=== PATIENT | male | born 1960 | race Native Hawaiian/Other Pacific Islander ===

== ENCOUNTER 2016-12-31 08:59 | Outpatient (CLI) | payer OTHER ==
[~2016-12-31 08:59] MED LIST: ALEVE220 MG PO; B12 INJ; BYSTOLIC10 MG PO; BYSTOLIC5 MG PO; CIALIS20 MG PO; CITA20TA2 PO; CLARITIN10 M1 PO; HYDR-2748 PO; KLOR-CON M2020 MEQ PO; LISI20TA11 PO; LISI20TA24 PO; PRILOSEC OTC20 MG PO
== END 2016-12-31 09:59 | disposition home or self-care (01) ==
LOC: US 08:59
DX: M25.841 Other specified joint disorders, right hand (principal)

== ENCOUNTER 2017-06-23 13:29 | Outpatient (CLI) | payer OTHER ==
[2017-06-23 13:50] LABS: PLATELET COUNT 142 K/uL (142-355)
[2017-06-23 14:32] LABS: POTASSIUM 3.5 mmol/L (3.6-5.2); SODIUM 142 mmol/L (136-145)
== END 2017-06-23 14:30 | disposition home or self-care (01) ==
LOC: LAB 13:29
PROVIDERS: Family Medicine
DX: I10 Essential (primary) hypertension (principal); E78.4 Other hyperlipidemia; D64.89 Other specified anemias; E53.8 Deficiency of other specified B group vitamins; N40.0 Benign prostatic hyperplasia without lower urinary tract symptoms; M10.9 Gout, unspecified; F41.8 Other specified anxiety disorders
CPT/HCPCS: 80053; 80061; 81000; 82043; 82570; 82607; 82746; 83735; 84153; 84439; 84443; 84550; 85027

== ENCOUNTER 2018-05-01 09:27 | Outpatient (CLI) | payer OTHER | END 2018-05-01 23:02 | disposition home or self-care (01) | LOC: RAD 09:27 | DX: M54.5 Low back pain (principal) ==

== ENCOUNTER 2018-10-19 12:22 | Emergency (ER) | payer OTHER ==
[~2018-10-19] VITALS: Ht 182.9 cm; Wt 97.5 kg
[2018-10-19 12:31] VITALS: TEMP 98.5
[2018-10-19 14:01] LABS: PLATELET COUNT 154 K/uL (142-355)
[2018-10-19 14:26] VITALS: BP 137/75
== END 2018-10-19 14:39 | disposition home or self-care (01) ==
LOC: ED 12:22
DX: S40.011A Contusion of right shoulder, initial encounter (principal); M47.892 Other spondylosis, cervical region; W18.39XA Other fall on same level, initial encounter; Y92.098 Other place in other non-institutional residence as the place of occurrence of the external cause
CPT/HCPCS: 36415; 80053; 85027; 96372; 99283

== ENCOUNTER 2018-12-01 09:55 | Outpatient (CLI) | payer OTHER ==
[2018-12-01 11:14] LABS: PLATELET COUNT 212 K/uL (142-355)
== END 2018-12-01 19:39 | disposition home or self-care (01) ==
LOC: LABW 09:55
PROVIDERS: Family Medicine
DX: R55 Syncope and collapse (principal); D64.9 Anemia, unspecified; R53.83 Other fatigue; E83.42 Hypomagnesemia; E55.9 Vitamin D deficiency, unspecified; I10 Essential (primary) hypertension
CPT/HCPCS: 36415; 81000; 82306; 82728; 83540; 83550; 83735; 84439; 84443; 85027; 93005

== ENCOUNTER 2018-12-06 14:22 | Outpatient (CLI) | payer OTHER | END 2018-12-06 20:11 | disposition home or self-care (01) | LOC: LAB 14:22 | PROVIDERS: Family Medicine | DX: I10 Essential (primary) hypertension (principal); Z13.6 Encounter for screening for cardiovascular disorders; R55 Syncope and collapse | CPT/HCPCS: 80061 ==

== ENCOUNTER 2018-12-15 09:40 | Outpatient (CLI) | payer OTHER ==
[2018-12-15 10:22] LABS: POTASSIUM 3.6 mmol/L (3.6-5.2)
== END 2018-12-15 22:22 | disposition home or self-care (01) ==
LOC: LABW 09:40
PROVIDERS: Family Medicine
DX: D53.1 Other megaloblastic anemias, not elsewhere classified (principal); R74.8 Abnormal levels of other serum enzymes
CPT/HCPCS: 36415; 80053; 80074; 82607; 82746

== ENCOUNTER 2019-06-01 13:44 | Emergency (ER) | payer OTHER ==
[~2019-06-01] VITALS: Ht 182.9 cm; Wt 97.5 kg
[2019-06-01 14:43] LABS: PLATELET COUNT 170 K/uL (142-355)
[2019-06-01 14:54] LABS: POTASSIUM 2.8 mmol/L (3.6-5.2)
[2019-06-01 18:05] VITALS: BP 129/68; TEMP 98.3
== END 2019-06-01 18:05 | disposition home or self-care (01) ==
LOC: ED 13:44
PROVIDERS: Family Medicine
DX: M10.9 Gout, unspecified (principal); E87.6 Hypokalemia
CPT/HCPCS: 80053; 84550; 85027; 96372; 96374; 99283; J2175; J2930

== ENCOUNTER 2019-06-19 20:19 | Emergency (ER) | payer OTHER ==
[~2019-06-19] VITALS: Ht 182.9 cm; Wt 97.5 kg
[2019-06-19 21:31] LABS: PLATELET COUNT 135 K/uL (142-355)
[2019-06-19 21:38] LABS: POTASSIUM 2.8 mmol/L (3.6-5.2)
[2019-06-19 23:01] VITALS: BP 142/72; TEMP 98.1
== END 2019-06-19 23:02 | disposition home or self-care (01) ==
LOC: ED 20:19
PROVIDERS: Emergency Medicine
DX: M10.9 Gout, unspecified (principal)
CPT/HCPCS: 36415; 80053; 84550; 85027; 96372; 99283; J2930

== ENCOUNTER 2019-08-18 14:57 | Emergency (ER) | payer OTHER ==
[~2019-08-18] VITALS: Ht 182.9 cm; Wt 97.5 kg
[2019-08-18 15:00] VITALS: BP 134/77; TEMP 97.7
== END 2019-08-18 16:00 | disposition home or self-care (01) ==
LOC: ED 14:57
DX: M1A.9XX0 Chronic gout, unspecified, without tophus (tophi) (principal); M25.561 Pain in right knee
CPT/HCPCS: 96372; 99283; J2930

== ENCOUNTER 2020-06-17 12:49 | Outpatient (CLI) | payer OTHER | END 2020-06-17 23:55 | disposition home or self-care (01) | LOC: MAMMO 12:49 | DX: N64.4 Mastodynia (principal); N63.10 Unspecified lump in the right breast, unspecified quadrant ==

== ENCOUNTER 2021-06-09 19:15 | Inpatient (IN) | payer OTHER ==
[~2021-06-09] VITALS: Ht 182.9 cm; Wt 95.4 kg
[2021-06-09 19:15] VITALS: BP 115/71; TEMP 97.8
[2021-06-09 20:00] VITALS: BP 120/65
[2021-06-09 20:43] LABS: PLATELET COUNT 191 K/uL (142-355)
[2021-06-09 20:52] LABS: POTASSIUM 1.7 mmol/L (3.6-5.2)
[2021-06-09 21:00] VITALS: BP 119/66
[2021-06-09 22:00] VITALS: BP 137/69
[2021-06-09 23:00] VITALS: BP 141/80
[2021-06-10] VITALS (12 sets, daily range): BP systolic 112–143; BP diastolic 62–76; TEMP 97.3–98.2; Ht 182.9 cm; Wt 95.4 kg
[2021-06-10 00:48] LABS: POTASSIUM 2.6 mmol/L (3.6-5.2)
[2021-06-10 03:09] LABS: POTASSIUM 2.5 mmol/L (3.6-5.2)
[2021-06-10 06:41] LABS: POTASSIUM 2.2 mmol/L (3.6-5.2)
[2021-06-10 07:23] LABS: POTASSIUM 2.2 mmol/L (3.6-5.2)
[2021-06-10] MEDS ORDERED: TAMSULOSIN0.4 MG PO (12:48)
[2021-06-10] MEDS ORDERED: HYDROCHLOROT12.5 M1 PO (12:49)
[2021-06-10] MEDS ORDERED: FURO20TA67 PO (12:50)
[2021-06-10] MEDS ORDERED: COLCRYS 0.6MG0.6 MG PO (12:50)
[2021-06-10] MEDS ORDERED: BYSTOLIC10 MG PO (12:52)
[2021-06-10 13:20] LABS: POTASSIUM 2.8 mmol/L (3.6-5.2)
[2021-06-11] VITALS: BP 125/64; TEMP 98.8
[2021-06-11 04:00] VITALS: BP 121/70; TEMP 98.6
[2021-06-11 07:53] LABS: PLATELET COUNT 133 K/uL (142-355)
[2021-06-11 08:00] VITALS: BP 126/73; TEMP 97.8
[2021-06-11 08:15] LABS: POTASSIUM 2.5 mmol/L (3.6-5.2)
[2021-06-11 12:00] VITALS: BP 146/70; TEMP 97.3
[2021-06-11 16:00] VITALS: BP 165/59; TEMP 98.5
[2021-06-11 20:00] VITALS: BP 142/59; TEMP 99.1
[2021-06-12] VITALS: BP 171/51; TEMP 99.3
[2021-06-12 04:00] VITALS: BP 137/62; TEMP 98.7
[2021-06-12 04:58] LABS: PLATELET COUNT 129 K/uL (142-355)
[2021-06-12 04:59] LABS: POTASSIUM 3.3 mmol/L (3.6-5.2)
[2021-06-12 08:00] VITALS: BP 143/71; TEMP 98.7
[2021-06-12 12:00] VITALS: BP 151/76; TEMP 98.7
== END 2021-06-12 15:14 | disposition home or self-care (01) | DRG 580 ==
LOC: ED 19:24 → MED/SURG 06-10 11:33 → UNDODEPER 06-11 17:10 → MED/SURG 06-12 15:14
PROVIDERS: Emergency Medicine Emergency Medical Services; ADMIT Internal Medicine Endocrinology, Diabetes & Metabolism; ATTEND Internal Medicine Endocrinology, Diabetes & Metabolism
PROC: 0CQ10ZZ Repair Lower Lip, Open Approach (ICD-10-PCS; principal; 2021-06-10)
PROC: 0HQ1XZZ Repair Face Skin, External Approach (ICD-10-PCS; 2021-06-10)
DX: S01.81XA Laceration without foreign body of other part of head, initial encounter (principal); E87.1 Hypo-osmolality and hyponatremia; S01.511A Laceration without foreign body of lip, initial encounter; E87.6 Hypokalemia; R55 Syncope and collapse; I10 Essential (primary) hypertension; M10.9 Gout, unspecified; F32.89 Other specified depressive episodes; W01.118A Fall on same level from slipping, tripping and stumbling with subsequent striking against other sharp object, initial encounter; Y92.89 Other specified places as the place of occurrence of the external cause; E83.42 Hypomagnesemia
CPT/HCPCS: 36415; 80048; 80320; 83735; 84100; 84132; 85008; 85027; 87635; 90471; 90472; 90715; 93005; 96365; 96366; 96375; 96376; 99284; 99285; J0696; J2001; J2270; J2405; J3475; J7040; U0003

== ENCOUNTER 2021-07-09 11:59 | Outpatient (CLI) | payer OTHER ==
[~2021-07-09 11:59] MED LIST changes: +COLCRYS 0.6MG0.6 MG PO; +FURO20TA67 PO; +HYDROCHLOROT12.5 M1 PO; +TAMSULOSIN0.4 MG PO
[2021-07-09 13:03] LABS: POTASSIUM 3.2 mmol/L (3.6-5.2)
== END 2021-07-09 19:12 | disposition home or self-care (01) ==
LOC: LABW 11:59
PROVIDERS: ATTEND Family Medicine
DX: E87.6 Hypokalemia (principal); E83.42 Hypomagnesemia
CPT/HCPCS: 36415; 83735; 84132

== ENCOUNTER 2021-09-14 13:52 | Outpatient (CLI) | payer OTHER ==
[2021-09-14 14:38] LABS: POTASSIUM 2.9 mmol/L (3.6-5.2)
== END 2021-09-14 21:05 | disposition home or self-care (01) ==
LOC: LABW 13:52
PROVIDERS: ATTEND Family Medicine
DX: E87.6 Hypokalemia (principal); E83.42 Hypomagnesemia
CPT/HCPCS: 36415; 83735; 84132

== ENCOUNTER 2021-10-29 12:15 | Outpatient (CLI) | payer OTHER ==
[2021-10-29 12:41] LABS: POTASSIUM 3.7 mmol/L (3.6-5.2)
== END 2021-10-29 19:13 | disposition home or self-care (01) ==
LOC: LABW 12:15
PROVIDERS: ATTEND Family Medicine
DX: E87.6 Hypokalemia (principal); E83.42 Hypomagnesemia
CPT/HCPCS: 36415; 83735; 84132

== ENCOUNTER 2021-11-25 09:45 | Outpatient (CLI) | payer OTHER | END 2021-11-25 18:56 | disposition home or self-care (01) | LOC: LABW 09:45 | PROVIDERS: ATTEND Family Medicine | DX: F10.10 Alcohol abuse, uncomplicated (principal); D53.1 Other megaloblastic anemias, not elsewhere classified | CPT/HCPCS: 36415; 82607; 82746; 84425 ==

== ENCOUNTER 2023-04-28 06:55 | Outpatient (CLI) | payer OTHER ==
[2023-04-28 07:22] LABS: PLATELET COUNT 174 K/uL (142-355)
[2023-04-28 08:21] LABS: POTASSIUM 3.5 mmol/L (3.6-5.2)
== END 2023-04-28 19:16 | disposition home or self-care (01) ==
LOC: LAB 06:55
PROVIDERS: ATTEND Family Medicine
DX: I10 Essential (primary) hypertension (principal); E78.00 Pure hypercholesterolemia, unspecified; M10.9 Gout, unspecified; E53.8 Deficiency of other specified B group vitamins; E55.9 Vitamin D deficiency, unspecified; Z79.899 Other long term (current) drug therapy
CPT/HCPCS: 36415; 80053; 80061; 81002; 82306; 82746; 83036; 83735; 84439; 84443; 84550; 85027